=== PATIENT | female | born 1980 | race Caucasian/White ===

== ENCOUNTER 2020-06-09 23:34 | Emergency (ER) | payer OTHER ==
--- NOTE | 2020-06-09 23:54 | ERPHSYRPT ---
- History of Present Illness Time Seen by Provider: 06/09/20 23:54 Source: patient Exam Limitations: clinical condition, intoxication, other (Mildly lethargic) Physician History: This is a 40-year-old white female who has a history of seizure disorder, substance abuse and known history of ovarian masses/cancer and uterine masses/cancer in the past and presents with vaginal bleeding with clots this evening prior to arrival. Patient was having some lower abdominal cramping and some back pain as well. Patient took naproxen approximately 11 PM prior to this evaluation. Patient had taken an [id number] test and this was positive. Patient arrived to the hospital, seemingly intoxicated of unknown substance. Patient states that she has been "clean" from substance abuse for 2 years but has had a couple of relapses. In March 2020 she was scheduled for gynecologic surgery to remove her ovaries and uterus but canceled because she stated she "freaked out". Her disbursing officer is in [facility]. Patient's last menstrual period was 27 days ago. She estimated that she is probably 9 weeks . Patient takes medications including Dilantin, Valium and marijuana Gummies. When I entered the room to evaluate this patient, she seemed somewhat sleepy. Nurse was and they are attempting to place an intravenous line. I was able to inform her that she was not based on a serum hCG and a quantitative hCG. Patient immediately stated that she thinks that maybe she should just go to [facility]. This interaction was all done within approximately 1 hour of her arrival. We did inform her we were going to perform a CAT scan of the abdomen pelvis and that we needed a urine specimen for analysis. Activites at Onset: none Quality: aching, cramping Onset Location: suprapubic, right flank, left flank, vaginal Sexual intercourse history: unprotected intercourse Modifying Factors: Improves With: other (Nausea) Associated Symptoms: abdominal pain, nausea, vomiting, lower back pain Allergies/Adverse Reactions: Penicillins Allergy (Mild, Verified 06/09/20 23:45) Hives Home Medications: Diazepam 5 mg PO BID 06/09/20 [History] Mirtazapine 30 mg [Remeron 30 mg] 30 mg PO DAILY 06/09/20 [History] Phenytoin Sod Extended 100 mg* [Dilantin 100 MG] 500 mg PO DAILY 06/09/20 [History] Hx Tetanus, Diphtheria Vaccination/Date Given: No Hx Influenza Vaccination/Date Given: No Hx Pneumococcal Vaccination/Date Given: No Travel Risk - International Travel Have you traveled outside of the country in past 3 weeks: No - Coronavirus Screening Are you exhibiting any of the following symptoms?: No Close contact with a COVID-19 positive Pt in past 14-21 Days: No - Review of Systems Constitutional: No Symptoms Eyes: No Symptoms Ears, Nose, & Throat: No Symptoms Respiratory: No Symptoms Cardiac: No Symptoms Abdominal/Gastrointestinal: Abdominal Pain, Nausea Genitourinary Symptoms: Vaginal Bleeding Musculoskeletal: Back Pain Skin: No Symptoms Neurological: Lethargy Psychological: No Symptoms Endocrine: No Symptoms Hematologic/Lymphatic: Blood Clots (Vaginally) Immunological/Allergic: No Symptoms All Other Systems: Reviewed and Negative - Past Medical History Pertinent Past Medical History: Yes Neurological History: Epilepsy, Seizures ENT History: No Pertinent History Cardiac History: No Pertinent History Respiratory History: No Pertinent History Endocrine Medical History: No Pertinent History Musculoskeletal History: No Pertinent History GI Medical History: No Pertinent History History: No Pertinent History Psycho-Social History: Anxiety, Bipolar, Other Female Reproductive Disorders: No Pertinent History, Other Other Medical History: BROKEN NOSE SEVERAL TIMES. BROKEN RIGHT HAND IN THE P AST. BROKEN LEFT FOOT IN THE PAST. BROKEN COLLAR BONE IN THE PAST. RECURRING FLUID FILLED CYSTS THAT RUPTURE CONTINUOUS. SWOLLEN FALLOPIAN TUBES - Past Surgical History Past Surgical History: Yes Neuro Surgical History: No Pertinent History Cardiac: No Pertinent History Respiratory: No Pertinent History Gastrointestinal: Exploratory Laparoscopy Genitourinary: No Pertinent History Musculoskeletal: No Pertinent History Female Surgical History: Other Other Surgical History: pt had cervix frozen. D and C - Social History Smoking Status: Current every day smoker How long have you smoked: 20 Exposure to second hand smoke: Yes Drug Use: none Patient Lives Alone: No - Nursing Vital Signs Nursing Vital Signs: Initial Vital Signs Temperature 98 F 06/09/20 23:49 Pulse Rate 82 06/09/20 23:49 Respiratory Rate 16 06/09/20 23:49 Blood Pressure 119/56 06/09/20 23:49 O2 Sat by Pulse Oximetry 100 06/09/20 23:49 Pain Scale Pain Intensity 9 - Physical Exam General Appearance: anxiety, lethargy (Mild) Eye Exam: PERRL/EOMI, eyes nml inspection Ears, Nose, Throat Exam: normal ENT inspection, moist mucous membranes Neck Exam: normal inspection, non-tender, supple, full range of motion Respiratory Exam: airway intact, No chest tenderness, No respiratory distress Gastrointestinal/Abdomen Exam: tenderness (Suprapubic) Pelvic Exam: not done Rectal Exam: not done Extremity Exam: normal inspection, normal range of motion Neurologic Exam: industrial boilermaker II-XII nml as tested, sensation nml, intoxicated appearance Skin Exam: normal color, warm, dry - Course Nursing assessment & vital signs reviewed: Yes Ordered Tests: Active Orders 24 hr Category Date Time Status Clean Catch Urine Specimen STAT Care 06/10/20 00:51 Active IV Insertion STAT Care 06/09/20 23:54 Active UA W/RFX UR CULTURE Stat Lab 06/09/20 23:54 Ordered Urine Triage Profile Stat Lab 06/10/20 Ordered Lab/Rad Data: Laboratory Result Diagrams 06/09/20 00:11 06/09/20 00:11 Laboratory Results 06/09/20 06/09/20 06/09/20 Range/Units 00:11 00:11 00:11 WBC 8.2 (4.0-10.5) K/mm3 RBC 3.76 L (4.1-5.4) M/mm3 Hgb 11.5 L (12.0-16.0) gm/dl Hct 37.2 (35-47) % MCV 98.9 (78-100) fl MCH 30.6 (26-32) pg MCHC 30.9 L (32-36) g/dl RDW 13.7 (11.5-14.0) % Plt Count 383 (150-450) K/mm3 MPV 8.4 (7.5-11.0) fl Gran % 61.1 (36.0-66.0) % Eos # (Auto) 0.11 (0-0.5) Absolute Lymphs (auto) 2.31 (1.0-4.6) Absolute Monos (auto) 0.72 (0.0-1.3) Lymphocytes % 28.3 (24.0-44.0) % Monocytes % 8.8 (0.0-12.0) % Eosinophils % 1.3 (0.00-5.0) % Basophils % 0.5 (0.0-0.4) % Absolute Granulocytes 4.98 (1.4-6.9) Basophils # 0.04 (0-0.4) Sodium 138 (137-145) mmol/L Potassium 3.9 (3.5-5.1) mmol/L Chloride 102 (98-107) mmol/L Carbon Dioxide 30 (22-30) mmol/L Anion Gap 10.4 (5-15) MEQ/L BUN 19 H (7-17) mg/dL Creatinine 0.94 (0.52-1.04) mg/dL Estimated GFR > 60.0 ML/MIN Glucose 85 (74-106) mg/dL Calcium 9.7 (8.4-10.2) mg/dL Total Bilirubin 0.20 (0.2-1.3) mg/dL AST 34 (14-36) U/L ALT 41 H (0-35) U/L Alkaline Phosphatase 55 (38-126) U/L Serum Total Protein 7.6 (6.3-8.2) g/dL Albumin 4.6 (3.5-5.0) g/dL Beta HCG, Quant < 2.39 mIU/ml Serum , Qual NEGATIVE (Negative) - Progress Progress: unchanged Air Movement: good Progress Note: 06/10/20 01:28 This patient was admitted to the emergency department room 9. There were several patients we are seeing in the department concurrently but we did order urinalysis and blood work. The patient was hemodynamically stable. We were able to tell the patient she was not based on a quantitative and serum qualitative hCG. The patient was interviewed by me at approximately 1 hour from her admission into the emergency department. Nurses were having problems placing an IV and therefore there was a delay in me performing a complete physical examination. I was able to obtain significant history from the patient. Patient was informed that she needed to provide us a urine specimen for urinalysis. The next thing that occurred was the patient eloped and was out in the waiting room and had decided that she no longer wanted to be evaluated here in this department and wanted to be seen at [facility]. She did not receive a CAT scan of the abdomen pelvis which was ordered and plan for. She did not have an intravenous line placed. She did not provide a urine specimen for analysis. 06/10/20 01:33 Blood Culture(s) Obtained: No Antibiotics given: No Counseled pt/family regarding: lab results - Departure Departure Disposition: AMA (Eloped) Clinical Impression: Vaginal bleeding Condition: Stable Critical Care Time: No Referrals: JULIANNE LABOY [Primary Care Provider] -
[2020-06-10 00:09] VITALS: PULSE 82
[2020-06-10 00:14] LABS: Absolute Neutrophil Ct (ANC) 4.98 (1.4-6.9); BASOPHIL % 0.5 % (0.0-0.4); Basophil (Absolute #) 0.04 (0-0.4); Eosinophil % 1.3 % (0.00-5.0); Eosinophil (Absolute #) 0.11 (0-0.5); Hematocrit 37.2 % (35-47); Hemoglobin 11.5 gm/dl (12.0-16.0); Lymphocyte (Absolute #) 2.31 (1.0-4.6); Lymphocytes % 28.3 % (24.0-44.0); Mean Cell Volume 98.9 fl (78-100); Mean Corpuscular Hemoglobin 30.6 pg (26-32); Mean Corpuscular Hgb Concent. 30.9 g/dl (32-36); Mean Platelet Volume 8.4 fl (7.5-11.0); Monocyte (Absolute #) 0.72 (0.0-1.3); Monocytes % 8.8 % (0.0-12.0); Neutrophil % 61.1 % (36.0-66.0); Platelet Count 383 K/mm3 (150-450); Red Blood Count 3.76 M/mm3 (4.1-5.4); Red Cell Distribution Width 13.7 % (11.5-14.0); White Blood Count 8.2 K/mm3 (4.0-10.5)
[2020-06-10 00:41] LABS: ALBUMIN 4.6 g/dL (3.5-5.0); ALKALINE PHOSPHATASE 55 U/L (38-126); ANION GAP 10.4 MEQ/L (5-15); BLOOD UREA NITROGEN 19 mg/dL (7-17); CHLORIDE 102 mmol/L (98-107); Calcium 9.7 mg/dL (8.4-10.2); Carbon Dioxide 30 mmol/L (22-30); Creatinine 1 0.94 mg/dL (0.52-1.04); EST GLOMERULAR FILTRATION RATE > 60.0 ML/MIN; Glucose 85 mg/dL (74-106); HCG, Quantitative (Inhouse) < 2.39 mIU/ml; Potassium 3.9 mmol/L (3.5-5.1); SGOT/AST 34 U/L (14-36); SGPT/ALT 41 U/L (0-35); SODIUM 138 mmol/L (137-145); Total Protein 7.6 g/dL (6.3-8.2)
[2020-06-10 00:48] VITALS: BP 100/52; O2SAT 99
== END 2020-06-10 01:30 | disposition left against medical advice (07) ==
LOC: ED 23:34
DX: N93.9 Abnormal uterine and vaginal bleeding, unspecified (principal); G40.909 Epilepsy, unspecified, not intractable, without status epilepticus; R10.30 Lower abdominal pain, unspecified; R10.9 Unspecified abdominal pain; Z79.899 Other long term (current) drug therapy
CPT/HCPCS: 36415; 80053; 81025; 84702; 85025; 99283

== ENCOUNTER 2020-12-04 06:31 | Day surgery (SDC) | payer OTHER ==
[2020-12-04] MEDS ORDERED: Sensorcaine 0.25% 10 ML ONE (06:38)
[2020-12-04] MEDS ORDERED: Sodium Chloride 0.9% 1000 ML 1,000 ML ONE (06:38)
[2020-12-04] MEDS ORDERED: CLINDAMYCIN-D5W 900 MG/50 ML*** 900 MG/50 ML BAG IV STA (07:05)
[2020-12-04] MEDS ORDERED: Zofran 4 MG/2 ML VIAL IV STA (07:27)
[2020-12-04] MEDS ORDERED: Versed 2 MG/2 ML Injection IV ONE (07:28)
[2020-12-04] MEDS ORDERED: Lactated Ringers 1,000 ML IV SCH (07:30)
[2020-12-04] MEDS ORDERED: Lactated Ringers 1,000 ML IV ONE (07:52)
[2020-12-04] MEDS ORDERED: Valium 5 MG PO ONE (07:54)
[2020-12-04 08:23] LABS: ALBUMIN 3.9 g/dL (3.5-5.0); ALKALINE PHOSPHATASE 52 U/L (38-126); ANION GAP 11.5 MEQ/L (5-15); BLOOD UREA NITROGEN 17 mg/dL (7-17); CHLORIDE 104 mmol/L (98-107); Carbon Dioxide 22 mmol/L (22-30); Creatinine 1 0.78 mg/dL (0.52-1.04); EST GLOMERULAR FILTRATION RATE > 60.0 ML/MIN; Glucose 94 mg/dL (74-106); Potassium 3.7 mmol/L (3.5-5.1); SGOT/AST 35 U/L (14-36); SGPT/ALT 32 U/L (0-35); SODIUM 133 mmol/L (137-145); Total Protein 6.8 g/dL (6.3-8.2)
[2020-12-04] MEDS ORDERED: CLINDAMYCIN-D5W 900 MG/50 ML*** 900 MG/50 ML BAG IV ONE (08:27)
[2020-12-04] MEDS ORDERED: Zofran 4 MG/2 ML VIAL ONE ×2 (08:29→09:35)
[2020-12-04] MEDS ORDERED: TORAdol 30 mg Injection ONE (09:35)
[2020-12-04] MEDS ORDERED: DIPRIVAN 200 MG/20 ML IV ONE (09:35)
[2020-12-04] MEDS ORDERED: Decadron 4 MG INJ ONE (09:35)
[2020-12-04] MEDS ORDERED: Zemuron 100 MG/10 ML ONE (09:35)
[2020-12-04] MEDS ORDERED: Quelicin Fliptop 200 MG/10 ML ONE (09:35)
[2020-12-04] MEDS ORDERED: SUBLIMAZE 100 MCG/2 ML ONE ×3 (09:41→11:54)
[2020-12-04] MEDS ORDERED: Versed 2 MG/2 ML Injection ONE (09:41)
[2020-12-04] MEDS ORDERED: BRIDION 200MG/2ML IV ONE (11:07)
[2020-12-04] MEDS ORDERED: Hydromorphone 1 mg/ml Injection ONE ×2 (11:54→12:02)
[2020-12-04 12:50] VITALS: O2SAT 98
[2020-12-04 13:08] VITALS: BP 113/67; PULSE 62
--- NOTE | 2020-12-05 08:43 | OP ---
SURGERY DATE/TIME: 12/04/2020 1035 PREOPERATIVE DIAGNOSES: 1) Left ovarian cyst. 2) Contraceptive management desiring tubal sterilization. 3) Abnormal uterine bleeding. POSTOPERATIVE DIAGNOSES: 1) Simple left ovarian cyst. 2) Contraceptive management desiring tubal sterilization. 3) Abnormal uterine bleeding. PROCEDURES: 1) Laparoscopic drainage of left ovarian cyst. 2) Bilateral tubal sterilization via fulguration of bilateral tubes with bipolar instrument. 3) Hysteroscopy, D&C with ablation. SURGEON: Carl Lopez D.O. WAFER POLISHER: Johnny Cheney and Cynthia Akhtar, surgical services assistant. ANESTHESIA: General. ESTIMATED BLOOD LOSS: Minimal. COMPLICATIONS: None. INDICATIONS: The risks, benefits, indications and alternatives of the procedure were reviewed with the patient prior to the procedure. The patient understood the risk of infection, bleeding, bowel injury, bladder injury, ureteral injury, uterine perforation, pelvic infection, thromboembolic disorder, ectopic , possible that may be associated with this procedure and desires to have this procedure as a possible means to alleviate her current medical condition. DESCRIPTION OF PROCEDURE AND FINDINGS: At this point the patient is taken to the operating room, given general sedation, placed in dorsal lithotomy position, prepped and draped in the usual sterile fashion. A weighted speculum is then placed in the patient's vagina and the anterior lip of the cervix is grasped with a single tooth tenaculum. A uterine manipulator was then placed in through the endocervical canal as a means to manipulate the uterus. Attention was then turned to the patient's abdomen where a 5 mm skin incision was made in umbilical fold where a 5 mm trocar and sleeve were advanced under direct visualization where pneumoperitoneum was obtained with 4 liters of CO2 gas. An additional incision was made approximately 2 cm above the symphysis pubis where an 8 mm incision was made and 8 mm trocar and sleeve were advanced under direct visualization as well. From this point visualization revealed her to have what appeared to be a simple cyst on the left ovary approximately 3 x 3 cm in dimension. From this point the Falope ring applicator was used and attempted to ligate the right tube. However, the instrument did not disengage properly and was then abandoned. From this point an additional incision was made on the skin in the left middle quadrant region where a 5 mm incision was made and a 5 mm trocar and sleeve were advanced under direct visualization. From this point the bipolar instrument was then introduced through the trocar site. The right fallopian tube was then brought superiorly and was coagulated in three contiguous regions and hemostasis was obtained. The same procedure was performed on the left where approximately three to four regions of the fallopian tube were coagulated on three contiguous regions and hemostasis was obtained and was done so without complication. The left ovary appeared to be within normal limits and J-hook cautery was placed on the surface making a stab incision where clear fluid was then retrieved and the ovary appeared to be within normal limits. The right ovary also appeared to be within normal limits at this time. Suction was obtained. At this point there was no bleeding that was noted within the pelvic cavity. From this point all instruments were then removed from the patient's abdominal region and the incision was closed with 4-0 Monocryl suture. Attention was then turned to the patient's vaginal region where a weighted speculum was then placed in the patient's vagina and the anterior lip of the cervix grasped with a single tooth tenaculum. Endocervical dilators were advanced through the endocervical canal as a means to dilate the cervix and at this point a 5 mm hysteroscope was then placed into the endocervical canal where visualization revealed no gross abnormalities. From this point a curette was then placed into the fundus of the uterus and curettage was performed in all quadrants of the uterus retrieving a mild amount of tissue. At this point the NovaSure was then taken through the endocervical canal subsequently and was engaged and had a length of 5.5 cm and a width of 3.6 cm and the machine was turned on for an ablative time of 59 seconds. At the completion of the ablation the instrument was disengaged and removed from the uterine cavity. All subsequent instruments were removed from the vaginal region. The patient was then taken out of dorsal lithotomy position, was taken out of anesthesia, and was then taken to the recovery room in stable condition. All instruments and laps were accounted for x2.
== END 2020-12-04 13:30 | disposition home or self-care (01) ==
LOC: SDC 06:31
PROVIDERS: ATTEND Obstetrics & Gynecology
DX: N93.9 Abnormal uterine and vaginal bleeding, unspecified (principal); Z30.2 Encounter for sterilization; N83.292 Other ovarian cyst, left side
CPT/HCPCS: 36415; 49322; 58558; 58671; 80053; 84703; 88305; J0330; J1100; J1170; J1885; J2250; J2405; J2704; J3010; A9270-GY